=== PATIENT | male | born 1975 | race Caucasian/White ===

== ENCOUNTER 2017-12-08 12:37 | Emergency (ER) | payer BC ==
[~2017-12-08] VITALS: Wt 111.1 kg
[~2017-12-08 12:37] MED LIST: ASPIR-LOX325 MG PO; ASPIRIN81 M1 PO; ATARAX25 MG PO; AUGMENTIN 875 M1 TA1 PO; CIPRO500 MG PO; CLARITIN10 MG PO; CORDROL20 MG PO; FLONASE0.05 MG/AC NS; KENALOG0.1% TP; NORFLEX100 MG PO; PERCOCET 325 MG1 TA2 PO; PREDNICOT20 MG PO; VICO10300 PO; VOLTAREN50 M1 PO
[2017-12-08] MEDS ORDERED: NAPROSYN500 MG PO (12:49)
== END 2017-12-08 14:28 | disposition home or self-care (01) ==
LOC: ED 12:37
DX: I80.02 Phlebitis and thrombophlebitis of superficial vessels of left lower extremity (principal); R03.0 Elevated blood-pressure reading, without diagnosis of hypertension; F17.200 Nicotine dependence, unspecified, uncomplicated; Z79.82 Long term (current) use of aspirin; Z79.899 Other long term (current) drug therapy